=== PATIENT | male | born 1990 | race African-American/Black ===

== ENCOUNTER 2017-12-22 17:55 | Emergency (ER) | payer OTHER ==
[2017-12-22 20:46] VITALS: BP 120/69; PULSE 60; TEMP 98.3; BMI 23.7
[2017-12-22] MEDS ORDERED: DIPHTH,PERTUSS(ACELL),TET 0.5 ML DISP.SYRIN IM ONE (21:00)
--- NOTE | 2017-12-22 21:01 | PDOC ---
History of Present Illness - General History Source: Patient Exam Limitations: No Limitations - History of Present Illness Initial Comments: 12/22/17 21:27 The patient is a 27 year old male with no significant past medical history who presents to the ED with left eyebrow laceration he sustained earlier today. Patient states he was playing basketball and was head butted by another player and subsequently cut his eyebrow. He denies any LOC, headache, or visual changes. Denies any recent illness, fever, or chills. He reports not being UTD on his tetanus. <Ashanti Velez - Last Filed: 12/22/17 21:40> <Isabelle Hedrick - Last Filed: 12/25/17 01:44> - General Chief Complaint: Injury Stated Complaint: LEFT EYEBROW LACERATION Time Seen by Provider: 12/22/17 19:28 Past History <Ashanti Velez - Last Filed: 12/22/17 21:40> - Past Medical History Asthma: Yes COPD: No - Suicide/Smoking/Psychosocial Hx Smoking History: Never smoked Hx Alcohol Use: Yes (SOCIAL) Drug/Substance Use Hx: No Substance Use Type: None <Isabelle Hedrick - Last Filed: 12/25/17 01:44> - Past Medical History Allergies/Adverse Reactions: Allergies Allergy/AdvReac Type Severity Reaction Status Date / Time No Known Allergies Allergy Verified 12/22/17 20:21 Home Medications: Ambulatory Orders Mometasone/Formoterol [Dulera 200 Mcg/5 Mcg Inhaler] 2 inh IH BID 12/22/17 Review of Systems - Review of Systems Able to Perform ROS?: Yes Comments:: 12/22/17 21:27 GENERAL/CONSTITUTIONAL: No fever or chills. No weakness. HEAD, EYES, EARS, NOSE AND THROAT: No change in vision. No ear pain or discharge. No sore throat. GASTROINTESTINAL: No nausea, vomiting, diarrhea or constipation. GENITOURINARY: No dysuria, frequency, or change in urination. CARDIOVASCULAR: No chest pain or shortness of breath. RESPIRATORY: No cough, wheezing, or hemoptysis. MUSCULOSKELETAL: No joint or muscle swelling or pain. No neck or back pain. SKIN: Cut on eyebrow. No rash NEUROLOGIC: No headache, vertigo, loss of consciousness, or change in strength/ sensation. ENDOCRINE: No increased thirst. No abnormal weight change. HEMATOLOGIC/LYMPHATIC: No anemia, easy bleeding, or history of blood clots. ALLERGIC/IMMUNOLOGIC: No hives or skin allergy. <Ashanti Velez - Last Filed: 12/22/17 21:40> *Physical Exam - Vital Signs Last Vital Signs Temp Pulse Resp BP Pulse Ox 98.3 F 60 15 120/69 100 12/22/17 18:36 12/22/17 18:36 12/22/17 18:36 12/22/17 18:36 12/22/17 18:36 - Physical Exam Comments: 12/22/17 21:40 GENERAL: Awake, alert, and fully oriented, in no acute distress HEAD: 1.5 cm partial thickness linear lac superior to the lateral aspect of L eyebrow EYES: PERRLA, EOMI, sclera anicteric, conjunctiva clear ENT: Auricles normal inspection, hearing grossly normal, nares patent, oropharynx clear without exudates. Moist mucosa NECK: Normal ROM, supple, no lymphadenopathy, JVD, or masses LUNGS: Breath sounds equal, clear to auscultation bilaterally. No wheezes, and no crackles HEART: Regular rate and rhythm, normal S1 and S2, no murmurs, rubs or gallops ABDOMEN: Soft, nontender, normoactive bowel sounds. No guarding, no rebound. No masses EXTREMITIES: Normal range of motion, no edema. No clubbing or cyanosis. No cords, erythema, or tenderness BACK: No midline spinal tenderness in cervical/thoracic/lumbar region NEUROLOGICAL: Normal speech, cranial nerves intact, negative pronator drift, 5/ 5 strength in all 4 extremities, normal sensation to light touch in all 4 extremities, normal cerebellar exam, normal gait, normal reflexes and tone SKIN: Warm, Dry, normal turgor, no rashes. <Ashatni Velez - Last Filed: 12/22/17 21:40> - Vital Signs Last Vital Signs Temp Pulse Resp BP Pulse Ox 98.3 F 60 15 120/69 100 12/22/17 18:36 12/22/17 18:36 12/22/17 18:36 12/22/17 18:36 12/22/17 18:36 <Isabelle Hedrick - Last Filed: 12/25/17 01:44> Procedures - Laceration/Wound Repair Left Lateral Eye Wound Length: to 2.5 cm Wound's Depth, Shape: superficial Irrigated w/ Saline: Yes Betadine Prep: No (hibiclens/alcohol) Wound Repaired With: Dermabond <Isabelle Hedrick - Last Filed: 12/25/17 01:44> Progress Note - Progress Note Progress Note: Documentation has been prepared under my direction and personally reviewed by me in its entirety. I attest that this documented accurately reflects all work, treatment, procedures and medical decision making performed by me. <Isabelle Hedrick - Last Filed: 12/25/17 01:44> Medical Decision Making - Medical Decision Making As noted above, this 27-year-old man, otherwise healthy, presents with history of injury to the left side of his face while playing basketball just prior to presentation. There was no LOC; patient denies headache/neck pain. He sustained superficial laceration of the area just above the lateral aspect of his left eyebrow. No other injury noted. After cleansing, wound was closed under sterile technique using Dermabond skin adhesive <Isabelle Hedrick - Last Filed: 12/25/17 01:44> *DC/Admit/Observation/Transfer - Attestations Scribe Attestion: 12/22/17 21:41 Documentation prepared by Ashanti Velez, acting as medical record librarian for Isabelle Hedrick MD. <Ashanti Velez - Last Filed: 12/22/17 21:40> <Isabelle Hedrick - Last Filed: 12/25/17 01:44> Diagnosis at time of Disposition: Eyebrow laceration Qualifiers: Encounter type: initial encounter Laterality: left Qualified Code(s): S01.112A - Laceration without foreign body of left eyelid and periocular area, initial encounter - Discharge Dispostion Disposition: HOME Condition at time of disposition: Stable - Patient Instructions Printed Discharge Instructions: DI for Laceration Repair With Dermabond Additional Instructions: Keep head elevated tonight Acetaminophen/ibuprofen as needed for pain Keep area around the wound as dry as possible for the next 24 hours Return to ER if area becomes swollen/red/pain
== END 2017-12-22 22:56 | disposition home or self-care (01) ==
LOC: FER 17:55
PROC: 08QPXZZ Repair Left Upper Eyelid, External Approach (ICD-10-PCS; principal; 2017-12-22)
PROC: 3E0234Z Introduction of Serum, Toxoid and Vaccine into Muscle, Percutaneous Approach (ICD-10-PCS; 2017-12-22)
DX: S01.112A Laceration without foreign body of left eyelid and periocular area, initial encounter (principal); W50.0XXA Accidental hit or strike by another person, initial encounter; Y93.67 Activity, basketball; Y92.9 Unspecified place or not applicable
CPT/HCPCS: 90715; 99282-25

== ENCOUNTER 2022-05-29 17:10 | Emergency (ER) | payer OTHER ==
[2022-05-29 17:34] VITALS: BP 117/60; PULSE 91; RESP 18; TEMP 98.6; BMI 23.9
[2022-05-29] MEDS ORDERED: LIDOCAINE HCL 2% JELLY (5 ML/TUBE) ONE (17:54)
[2022-05-29] MEDS ORDERED: SODIUM CHLORIDE 1,000 ML IV STA (18:16)
[2022-05-29] MEDS ORDERED: ONDANSETRON 4 MG/2 ML VIAL IVPB ONE (18:16)
[2022-05-29] MEDS ORDERED: LOPERAMIDE HCL 2 MG CAPSULE PO ONE (18:17)
[2022-05-29] MEDS ORDERED: LOPERAMIDE HCL 2 MG CAPSULE ONE (18:25)
[2022-05-29] MEDS ORDERED: ONDANSETRON 4 MG/2 ML VIAL ONE (18:40)
[2022-05-29 18:48] LABS: HEMATOCRIT 47.5 % (35.4-49); HEMOGLOBIN 16.6 G/dL (11.7-16.9); MCH 31.8 pg (25.7-33.7); MCHC 34.9 g/dl (32.0-35.9); MEAN CELL VOLUME 91.1 fl (80-96); MEAN PLT VOLUME 8.2 fl (7.5-11.1); PLATELET COUNT 210.5 10^3/uL (134-434); RBC 5.21 10^6/uL (4.00-5.60); RDW 13.8 % (11.9-15.9); WHITE BLOOD COUNT 11.2 10^3/uL (4.0-10.8)
[2022-05-29 19:18] LABS: PLATELET ESTIMATE NORMAL
[2022-05-29 19:51] LABS: ALBUMIN 4.3 g/dl (3.4-5.0); BILIRUBIN,TOTAL 1.9 mg/dl (0.2-1); CALCIUM 9.2 mg/dl (8.5-10); CREATININE 1.1 mg/dl (0.55-1.3); TOT PROT 7.5 g/dl (6.4-8.2)
== END 2022-05-29 20:12 | disposition home or self-care (01) ==
LOC: FER 17:10
PROC: 3E033NZ Introduction of Analgesics, Hypnotics, Sedatives into Peripheral Vein, Percutaneous Approach (ICD-10-PCS; principal; 2022-05-29)
PROC: 3E0337Z Introduction of Electrolytic and Water Balance Substance into Peripheral Vein, Percutaneous Approach (ICD-10-PCS; 2022-05-29)
DX: R11.2 Nausea with vomiting, unspecified (principal)
CPT/HCPCS: 36415; 80053; 85027; 99283-25